=== PATIENT | female | born 2005 | race Caucasian/White ===

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

== ENCOUNTER 2025-03-25 08:07 | Emergency (ER) | payer OTHER ==
[2025-03-25 08:15] VITALS: RESP 16; TEMP 98.1
--- NOTE | 2025-03-25 08:38 | ED ---
Seizure HPI - General Chief Complaint: Seizure Stated Complaint: seizure Time Seen by Provider: 03/25/25 08:12 Source: patient, RN notes reviewed Mode of arrival: ambulatory Limitations: no limitations - History of Present Illness Initial Comments: 19-year-old female presents emerged from chief complaint of possible seizure. Patient has a history of seizures states that she felt she woke up and had symptoms where she was confused or postictal. Patient denies any tongue biting denies any incontinence. Patient states she does have a history of seizures on current medication. Patient denies any current headache no current complaints. She is followed by neurology out of [facility]. - Related Data Home Medications Medication Instructions Recorded Confirmed Albuterol Sulfate [Ventolin HFA] 1 - 2 puff INHALATION RT-Q6H PRN 08/25/23 01/09/24 Cholecalciferol [Vitamin D3 (25 25 mcg PO HS 08/25/23 01/09/24 Mcg = 1000 Iu)] Clonazepam Odt 0.5mg 1 tab PO DAILY PRN 08/25/23 01/09/24 Folic Acid 1 mg PO HS 08/25/23 01/09/24 lamoTRIgine [LaMICtal Xr] 600 mg PO DAILY 08/25/23 01/09/24 levETIRAcetam [Keppra Xr] 3,750 mg PO DAILY 08/25/23 01/09/24 Clobetasol Propionate [Clobex 1 applic TOPICAL BID 01/09/24 01/09/24 0.05% Soln] Medroxyprogesterone Acetate 150 mg IM Q90D 01/09/24 01/09/24 [Depo-Provera] Triamcinolone 0.025% Cream 1 applic TOPICAL BID 01/09/24 01/09/24 [Kenalog 0.025% Cream] Fluticasone Propionate 44 Mcg 1 puff INHALATION RT-BID PRN 01/10/24 01/10/24 [Flovent 44 Mcg Inhaler] Previous Rx's Medication Instructions Recorded Acetaminophen Tab [Tylenol] 650 mg PO Q6HR PRN tab 01/13/24 Amoxic-Pot Clav 875-125Mg 1 each PO Q12HR 5 Days #10 tab 01/13/24 [Augmentin 875-125] Budesonide-Formot 160-4.5 Mcg 2 puff INHALATION RT-BID 30 Days 01/13/24 [Symbicort 160-4.5 Mcg Inhaler] #1 each methylPREDNISolone Dose Pack 4 mg PO DIRECTED #21 tab 01/13/24 [Medrol Dose Pack] Doxycycline Hyclate 100 mg PO BID 5 Days #10 cap 01/16/24 Allergies Allergy/AdvReac Type Severity Reaction Status Date / Time No Known Allergies Allergy Verified 01/09/24 17:10 Review of Systems ROS Statement: Those systems with pertinent positive or pertinent negative responses have been documented in the HPI. ROS Other: All systems not noted in ROS Statement are negative. Past Medical History Past Medical History: Seizure Disorder Additional Past Medical History / Comment(s): seizures History of Any Multi-Drug Resistant Organisms: None Reported Additional Past Surgical History / Comment(s): plastic surgery after dog bite Past Psychological History: Depression, PTSD Smoking Status: Never smoker Past Alcohol Use History: None Reported Past Drug Use History: None Reported General Exam Limitations: no limitations General appearance: alert, in no apparent distress Head exam: Present: atraumatic, normocephalic, normal inspection Eye exam: Present: normal appearance, PERRL, EOMI. Absent: scleral icterus, conjunctival injection, periorbital swelling ENT exam: Present: normal exam, normal oropharynx, mucous membranes moist Neck exam: Present: normal inspection, full ROM. Absent: tenderness, meningismus, lymphadenopathy Respiratory exam: Present: normal lung sounds bilaterally. Absent: respiratory distress, wheezes, rales, rhonchi, stridor Cardiovascular Exam: Present: regular rate, normal rhythm, normal heart sounds. Absent: systolic murmur, diastolic murmur, rubs, gallop, clicks Neurological exam: Present: alert, oriented X3, CN II-XII intact, reflexes normal. Absent: motor sensory deficit Course Vital Signs 03/25/25 08:12 Temperature 98.1 F Pulse Rate 67 Respiratory 16 Rate Blood Pressure 113/79 O2 Sat by Pulse 98 Oximetry Medical Decision Making - Medical Decision Making Was pt. sent in by a medical professional or institution (, PA, FURNACE CHECKER, urgent care, hospital, or assisted...) When possible be specific @ -No Did you speak to anyone other than the patient for history (EMS, parent, family, police, friend...)? What history was obtained from this source @ -No Did you review nursing and triage notes (agree or disagree)? Why? @ -I reviewed and agree with nursing and triage notes Were old charts reviewed (outside hosp., previous admission, EMS record, old EKG, old radiological studies, urgent care reports/EKG's, assisted records)? Report findings @ -No old charts were reviewed Differential Diagnosis (chest pain, altered mental status, abdominal pain women, abdominal pain men, vaginal bleeding, weakness, fever, dyspnea, syncope, headache, dizziness, GI bleed, back pain, seizure, CVA, palpatations, mental health, musculoskeletal)? @ -Differential Seizure: Recurrent seizure disorder, febrile seizure, alcohol withdrawal, stimulants, meningitis, encephalitis, intercranial hemorrhage, intracranial tumor, stroke, eclampsia, thyrotoxicosis, hypocalcemia, hyponatremia, hypernatremia, hypomagnesemia, psychogenic, this is not meant to be an all-inclusive list. EKG interpreted by me (3pts min.). @ -None X-rays interpreted by me (1pt min.). @ -None done CT interpreted by me (1pt min.). @ -None done U/S interpreted by me (1pt. min.). @ -None done What testing was considered but not performed or refused? (CT, X-rays, U/S, labs)? Why? @ -None What meds were considered but not given or refused? Why? @ -None Did you discuss the management of the patient with other professionals (professionals i.e. , PA, FURNACE CHECKER, lab, RT, psych nurse, manager social, manager entry, teacher, forest officer, case maker)? Give summary @ -No Was smoking cessation discussed for >3mins.? @ -No Was critical care preformed (if so, how long)? @ -No Were there social determinants of health that impacted care today? How? (Homelessness, low income, unemployed, alcoholism, drug addiction, transportation, low edu. Level, literacy, decrease access to med. care, prison, rehab)? @ -No Was there de-escalation of care discussed even if they declined (Discuss DNR or withdrawal of care, Hospice)? DNR status @ -No What co-morbidities impacted this encounter? (DM, HTN, Smoking, COPD, CAD, Cancer, CVA, ARF, Chemo, Hep., AIDS, mental health diagnosis, sleep apnea, morbid obesity)? @ -Seizure disorder Was patient admitted / discharged? Hospital course, mention meds given and route, prescriptions, significant lab abnormalities, going to OR and other pertinent info. @ -discharge this patient has a history of seizures she is asymptomatic is unclear if she had a seizure or not she has no complaints and will be discharged in stable condition with follow-up with neurology. Undiagnosed new problem with uncertain prognosis? @ -No Drug Therapy requiring intensive monitoring for toxicity (Heparin, Nitro, Insulin, Cardizem)? @ -No Were any procedures done? @ -No Diagnosis/symptom? @ -Seizure history Acute, or Chronic, or Acute on Chronic? @ -Acute Uncomplicated (without systemic symptoms) or Complicated (systemic symptoms)? @ -Uncomplicated Side effects of treatment? @ -No Exacerbation, Progression, or Severe Exacerbation? @ -No Poses a threat to life or bodily function? How? (Chest pain, [place], [place], pneumonia, PE, COPD, DKA, ARF, appy, cholecystitis, CVA, Diverticulitis, Homicidal, Suicidal, threat to staff... and all critical care pts) @ -No Disposition Clinical Impression: Seizure disorder Disposition: HOME SELF-CARE Condition: Stable Instructions (If sedation given, give patient instructions): Recurrent Seizures in Adults (ED) Additional Instructions: Please return to the Emergency Department if symptoms worsen or any other concerns. Is patient prescribed a controlled substance at d/c from ED?: No Referrals: None,Stated [Primary Care Provider] - 1-2 days Time of Disposition: 08:38
[2025-03-25 09:27] VITALS: BP 107/75; PULSE 75
== END 2025-03-25 09:27 | disposition home or self-care (01) ==
LOC: EC 08:07
DX: G40.909 Epilepsy, unspecified, not intractable, without status epilepticus (principal)
CPT/HCPCS: 99283

== ENCOUNTER 2025-04-17 14:41 | Emergency (ER) | payer OTHER ==
[2025-04-17 14:53] VITALS: RESP 16
--- NOTE | 2025-04-17 15:18 | ED ---
ENT HPI - General Chief complaint: ENT Stated complaint: L Ear Object Stuck Time Seen by Provider: 04/17/25 14:54 Source: patient, RN notes reviewed Mode of arrival: ambulatory Limitations: no limitations - History of Present Illness Initial comments: This is a 19-year-old female who presents to the emergency department for a Q- tip stuck in her left ear. States she was trying to itch her psoriasis and the tip of the Q-tip got stuck. Her significant other was able to remove a portion of it, however there is still a chunk left. Denies any pain associated with this. - Related Data Home Medications Medication Instructions Recorded Confirmed Albuterol Sulfate [Ventolin HFA] 1 - 2 puff INHALATION RT-Q6H PRN 08/25/23 01/09/24 Cholecalciferol [Vitamin D3 (25 25 mcg PO HS 08/25/23 01/09/24 Mcg = 1000 Iu)] Clonazepam Odt 0.5mg 1 tab PO DAILY PRN 08/25/23 01/09/24 Folic Acid 1 mg PO HS 08/25/23 01/09/24 lamoTRIgine [LaMICtal Xr] 600 mg PO DAILY 08/25/23 01/09/24 levETIRAcetam [Keppra Xr] 3,750 mg PO DAILY 08/25/23 01/09/24 Clobetasol Propionate [Clobex 1 applic TOPICAL BID 01/09/24 01/09/24 0.05% Soln] Medroxyprogesterone Acetate 150 mg IM Q90D 01/09/24 01/09/24 [Depo-Provera] Triamcinolone 0.025% Cream 1 applic TOPICAL BID 01/09/24 01/09/24 [Kenalog 0.025% Cream] Fluticasone Propionate 44 Mcg 1 puff INHALATION RT-BID PRN 01/10/24 01/10/24 [Flovent 44 Mcg Inhaler] Previous Rx's Medication Instructions Recorded Acetaminophen Tab [Tylenol] 650 mg PO Q6HR PRN tab 01/13/24 Amoxic-Pot Clav 875-125Mg 1 each PO Q12HR 5 Days #10 tab 01/13/24 [Augmentin 875-125] Budesonide-Formot 160-4.5 Mcg 2 puff INHALATION RT-BID 30 Days 01/13/24 [Symbicort 160-4.5 Mcg Inhaler] #1 each methylPREDNISolone Dose Pack 4 mg PO DIRECTED #21 tab 01/13/24 [Medrol Dose Pack] Doxycycline Hyclate 100 mg PO BID 5 Days #10 cap 01/16/24 Allergies Allergy/AdvReac Type Severity Reaction Status Date / Time No Known Allergies Allergy Verified 01/09/24 17:10 Review of Systems ROS Statement: Those systems with pertinent positive or pertinent negative responses have been documented in the HPI. ROS Other: All systems not noted in ROS Statement are negative. Past Medical History Past Medical History: Asthma, Seizure Disorder Additional Past Medical History / Comment(s): seizures,psorasis History of Any Multi-Drug Resistant Organisms: None Reported Additional Past Surgical History / Comment(s): plastic surgery after dog bite Past Psychological History: Depression, PTSD Smoking Status: Never smoker Past Alcohol Use History: None Reported Past Drug Use History: None Reported General Exam Limitations: no limitations General appearance: alert, in no apparent distress Head exam: Present: atraumatic, normocephalic, normal inspection ENT exam: Present: other (Cotton end of the Q-tip in the left ear) Respiratory exam: Present: normal lung sounds bilaterally. Absent: respiratory distress, wheezes, rales, rhonchi, stridor Cardiovascular Exam: Present: regular rate, normal rhythm Neurological exam: Present: alert, oriented X3, CN II-XII intact Psychiatric exam: Present: normal affect, normal mood Skin exam: Present: warm, dry, intact, normal color. Absent: rash Course Vital Signs 04/17/25 04/17/25 14:50 15:31 Temperature 98.2 F 98.0 F Pulse Rate 79 76 Respiratory 16 16 Rate Blood Pressure 112/79 118/76 O2 Sat by Pulse 99 99 Oximetry Procedures - Foreign Body Removal Ear Location: ear canal (L) Foreign Body Suspected: other (Q-tip) Foreign Body Removed: yes Foreign Body Removal Technique: instrumentation Tympanic Membrane Intact: Yes Patient Tolerated Procedure: well Complications: none Medical Decision Making - Medical Decision Making This is a 19-year-old female who presents to the emergency department for a Q- tip stuck in her left ear. Was pt. sent in by a medical professional or institution? @ -No Did you speak to anyone other than the patient for history? @ -No Did you review nursing and triage notes? @ -Yes, and I agree, it is accurate with regards to the patient's symptoms. Were old charts reviewed? @ -No Differential Diagnosis? @ -Foreign body, otitis media, otitis externa, injury, this is not meant to be an all-inclusive list. EKG interpreted by me (3pts min.)? @ -Not obtained X-rays interpreted by me (1pt min.)? @ -Not obtained CT interpreted by me (1pt min.)? @ -Not obtained U/S interpreted by me (1pt. min.)? @ -Not obtained What testing was considered but not performed? (CT, X-rays, U/S, labs)? Why? @ -None What meds were considered but not given? Why? @ -None Did you discuss the management of the patient with other professionals? @ -No Did you reconcile home meds? @ -No Was smoking cessation discussed for >3mins.? @ -No Was critical care preformed (if so, how long)? @ -No Were there social determinants of health that impacted care today? How? (Homelessness, low income, unemployed, alcoholism, drug addiction, transportation, low edu. Level, literacy, decrease access to med. care, prison, rehab)? @ -No Was there de-escalation of care discussed even if they declined? (Discuss DNR or withdrawal of care, Hospice)? @ -No What co-morbidities impacted this encounter? (DM, HTN, Smoking, COPD, CAD, Cancer, CVA, Hep., AIDS, mental health diagnosis, sleep apnea, morbid obesity)? @ -None Was patient admitted / discharged? @ -Discharged. The cotton end of the Q-tip was visualized in the ear canal and easily removed with forceps. TM was visualized and intact afterwards. Patient discharged home in stable condition and advised to avoid putting things in her ears in the future. Case discussed with ED attending Dr. Rutledge. Return precautions reviewed in depth, the patient is instructed to return to the emergency department with any new, worsening, or concerning symptoms. Patient verbalized understanding. Undiagnosed new problem with uncertain prognosis? @ -None Drug Therapy requiring intensive monitoring for toxicity (Heparin, Nitro, Insulin, Cardizem)? @ -None Were any procedures done? @ -Foreign body removal left ear Diagnosis/symptom? @ -Foreign body in left ear Acute, or Chronic, or Acute on Chronic? @ -Acute Uncomplicated (without systemic symptoms) or Complicated (systemic symptoms)? @ -Uncomplicated Side effects of treatment? @ -None Exacerbation, Progression, or Severe Exacerbation] @ -Not applicable Poses a threat to life or bodily function? @ -No Disposition Clinical Impression: Foreign body in left ear Disposition: HOME SELF-CARE Instructions (If sedation given, give patient instructions): Ear Foreign Body (ED) Additional Instructions: Return to the emergency department with any new, worsening, or concerning symptoms. Try to avoid putting things in your ear canal. Is patient prescribed a controlled substance at d/c from ED?: No Referrals: Manuel Valdovinos MD [Primary Care Provider] - 1-2 days Time of Disposition: 15:18
[2025-04-17 15:33] VITALS: BP 118/76; PULSE 76; TEMP 98
== END 2025-04-17 15:32 | disposition home or self-care (01) ==
LOC: EC 14:41
DX: T16.2XXA Foreign body in left ear, initial encounter (principal); W44.8XXA Other foreign body entering into or through a natural orifice, initial encounter
CPT/HCPCS: 69200; 99282